=== PATIENT | female | born 1995 | race Caucasian/White ===

== ENCOUNTER → 2017-08-02 | Day surgery (SDC) | payer BC ==
[~2017-08-02] VITALS: Ht 157.5 cm; Wt 62.5 kg
[~2017-08-02] MED LIST: ACETAMINOPHEN/HYDROcodone 325 MG/5 MG TAB ONE; AMPICILLIN/SULBAC 3 GM/NS 100 ML IV PRN; CHLORHEXIDINE GLUCONATE 2 % 1 PACK (2 CLOTHS) TOPICAL PRN; DEXAMETHASONE SOD PHOS 4 MG/ML VIAL IV ONE; FAMOTIDINE 20 MG/2 ML VIAL ONE; LACTATED RINGER'S 1000 ML IV PRN; LIDOCAINE 0.5%/EPINEPHrine 1:200,000 SOLN 50 ML VIAL ONE; LIDOCAINE HCL 1% PF 5 ML SYRINGE OTHER ONE; MEPERIDINE HCL 25 MG/ML VIAL ONE; METOPROLOL TARTRATE 25 MG TAB PO PRN; MIDAZOLAM HCL 2 MG/2 ML VIAL ONE; ONDANSETRON HCL 4 MG/2 ML VIAL IV PUSH ONE; ONDANSETRON HCL 4 MG/2 ML VIAL ONE; OXYMETAZOLINE HCL 0.05% 15 ML NASAL SPRAY ONE; POVIDONE IODINE 5% (ANTISEPSIS KIT) 4 APPLICATIONS EACH NARE PRN; PROPOFOL 200 MG/20 ML AMP IV ONE; ROCURONIUM INJ 50 MG/5 ML SYRINGE IV PUSH ONE; SODIUM CHLOR 0.9% 1000 ML INJ 1,000 ML ONE; SODIUM CHLORID 0.9% 500 ML IV PRN; SUCCINYLCHOLINE CHLORIDE 100 MG/5 ML SYRINGE IV PUSH ONE
[2017-08-02 10:50] VITALS: PULSE 85
[2017-08-02 12:45] VITALS: BP 120/72; PULSE 79; RESP 16; TEMP 97.6; O2SAT 100
--- NOTE | 2017-08-19 11:18 | MP ---
cc: MONTY REESE MD DATE OF SURGERY 08/02/[address] Monty Reese PREOPERATIVE DIAGNOSIS 1. Nasal airway obstruction. 2. Nasal septal deviation. 3. Hypertrophy of inferior turbinates. 4. Chronic pansinusitis. POSTOPERATIVE DIAGNOSIS 1. Nasal airway obstruction. 2. Nasal septal deviation. 3. Hypertrophy of inferior turbinates. 4. Chronic pansinusitis. OPERATION PERFORMED 1. Open repair nasal septal fracture. 2. Bilateral submucosal resection of inferior turbinates. 3. Left endoscopic total ethmoidectomy. 4. Left endoscopic maxillary antrostomy with removal of maxillary sinus tissue. 5. Left endoscopic sphenoidotomy with removal of sphenoid sinus tissue. 6. Bilateral endoscopic exploration of frontal sinus ducts with balloon dilation. INDICATIONS The indications are documented in the history and physical. DESCRIPTION OF OPERATION The patient was taken to OR #2 and placed in the supine position. Following induction of general anesthesia and intubation the nose was packed bilaterally with cotton pledgets saturated in 0.05% oxymetazoline. The nasal septal mucosa and inferior turbinates were injected with a total of 8 mL of 1% Xylocaine with epinephrine 1:100,000. She was then prepped and draped for surgery. The packing was removed and a hemitransfixion incision was made in the left nasal vestibule. Through this incision the mucosa of septum was elevated bilaterally as far as the junction of the bony cartilaginous septum. This revealed the quadrangular cartilage which showed evidence of old septal fracture with a large comminuted fragment extending into the left nasal airway. A cumulative area of 1.5 x 2 cm was removed preserving 1.5 cm dorsal and caudal cartilaginous struts. When this was completed the mucosa was elevated from the bony septum and the maxillary crest. The bony septum was removed with Carlisle-Estevez forceps and the maxillary crest was removed using a 6 mm Everson chisel. The anterior nasal spine was preserved during this process. The incision was then closed with a running suture of 4-0 chromic and the mucosal layers of septum were approximated to each other with a quilting stitch of 4-0 plain gut. The inferior turbinates were then fractured out medially and stab incisions were made along their inferior surfaces. Through these incisions the submucosal soft tissue was reduced using a curet and preserving the conchal bone. The incisions were then cauterized using the suction Bovie at 35 thomas and the remnants of the inferior turbinates were then re-lateralized to the lateral nasal wall. At this point forward the operation was done using endoscopic visualization. Additional injections of lidocaine and epinephrine were made into the polypoid tissue filling the left nasal vault and prolapsing from the middle and superior meatus. Segments of these were obtained with Blakesley forceps and were submitted for histopathology, labeled left sinus contents. The remainder was removed using the power microdebrider to allow inspection of lateral nasal wall anatomy. When this was completed additional injections then were made in the attachments of the middle turbinates and into the uncinate processes and the ethmoid cells. The left side was addressed first beginning with amputation of the middle turbinate. This was done using through-cutting Blakesley forceps and the power microdebrider. This continued back into the polypoid tissue in the posterior nasal vault. When this was completed the uncinate process was removed and the anterior ethmoid cells were exenterated of polypoid tissue and what appeared to be allergic fungal mucin using blunt and power dissection. This was continued as far as the basal lamella which was then reduced medially to laterally using the power debrider. The posterior cells were entered and they were also exonerated using the same technique. This continued back as far as the rostrum of the sphenoid. The sphenoid ostium was enlarged using blunt penetration and a sphenoid rongeur. Additional tissue was then removed from the sphenoid sinus cavity and included in the specimen labeled left sinus contents. The maxillary ostium then was enlarged with Stammberger forceps and the power microdebrider. This cavity was entered. This was filled with dense allergic mucin. This was removed with irrigation with curved suction and with a curved curet. The left side was then irrigated and packed with cotton pledgets saturated in oxymetazoline. These remained in place while the frontal sinus ducts were dilated using the balloon technique. The left side was addressed first. The guidewire was advanced in the left frontal sinus and the balloon then advanced over the wire and inflated at two levels superiorly and inferiorly. The guidewire was then withdrawn and the cavity was irrigated through the balloon catheter for a total of 100 mL of saline. This removed somewhat further allergic fungal mucin from the frontal duct. The balloon was then removed and polypoid tissue was removed from the duct also. The right balloon dilation was then completed. On this side no irrigation was done. At this point the blood loss and the procedure was approaching 800 mL and it was elected to terminate the procedure at this point and not do the exenteration of the right ethmoid and maxillary sinuses. Both sides were then irrigated with chilled saline. The left side was filled with Stammberger sinus foam and the inferior vault was filled with 5.5 cm Rapid Rhino packs each inflated with 5 mL of air. The procedure was terminated. The patient was then reversed from anesthesia and taken to Recovery in good condition. There were no complications. Blood loss was 800 mL. MD CELSO Gallardo/LEXI /7:44 AM /10:44 AM
== END | disposition home or self-care (01) ==
LOC: PHSDC 06:15
PROVIDERS: ATTEND Otolaryngology
DX: J98.8 Other specified respiratory disorders (principal); J34.2 Deviated nasal septum; J34.3 Hypertrophy of nasal turbinates; J32.4 Chronic pansinusitis
CPT/HCPCS: 00160; 30140; 30520; 31267; 31288; 31296; 88305; 88311; J0295; J0330; J1100; J2175; J2250; J2405; J3010; J7030; J7120